=== PATIENT | male | born 1930 | race Caucasian/White ===

== ENCOUNTER 2017-06-02 20:48 | Emergency (ER) | payer MEDICARE, OTHER ==
[~2017-06-02] VITALS: Ht 165.1 cm; Wt 59.1 kg
[~2017-06-02 20:48] MED LIST: ACET-2116 PEG; ACET-2116 PO; AMIN30LI24 PEG; DOCU100C33 PEG; FERR-89 PEG; HALO5I IM; HYDR-309 PEG; INSU100C14 SQ; KDUR10 PEG; MOM30 PO; ONDA4 PO; PANT40TA25 PEG; QUET25TA PO
[2017-06-02] MEDS ORDERED: APIX5TAB PO (21:38)
[2017-06-02] MEDS ORDERED: CETI-290 PO (21:38)
[2017-06-02] MEDS ORDERED: AMLO-511 PO (21:38)
[2017-06-02] MEDS ORDERED: QUET25TA PO (21:38)
[2017-06-02] MEDS ORDERED: CYPR4TAB35 PO (21:38)
[2017-06-02 21:47] LABS: GLUCOSE,POINT OF CARE 138 MG/DL (70-110)
[2017-06-02 21:57] LABS: GLUCOSE,POINT OF CARE 146 MG/DL (70-110)
[2017-06-02 22:10] LABS: BASOPHILS # (AUTO) 0.06 K/uL (0.00-0.20); BASOPHILS % (AUTO) 0.6 % (0.0-2.0); EOSINOPHILS # (AUTO) 0.63 K/uL (0.00-0.70); EOSINOPHILS % (AUTO) 6.43 % (1.0-6.0); HEMATOCRIT 31.2 % (41-53); HEMOGLOBIN 10.4 g/dL (13.5-17.5); LYMPHOCYTES # (AUTO) 1.9 K/uL (1.0-4.8); MEAN CORPUSCULAR HEMOGLOBIN 28.5 pg (26.0-34.0); MEAN CORPUSCULAR HGB CONC 33.1 G/dL (31.0-37.0); MEAN CORPUSCULAR VOLUME 86 fL (80-100); MONOCYTES # (AUTO) 0.4 K/uL (0.1-1.0); MONOCYTES % (AUTO) 3.8 % (2.0-9.0); NEUTROPHILS # (AUTO) 6.8 K/uL (1.8-7.7); NEUTROPHILS % (AUTO) 70.1 % (40.0-70.0); PLATELET COUNT (AUTO) 287 K/uL (150-450); RED BLOOD CELL COUNT(AUTO) 3.63 MIL/uL (4.50-5.90); RED CELL DISTRIBUTION WIDTH 14.1 % (11.5-14.5); WHITE BLOOD COUNT (AUTO) 9.7 K/uL (4.5-11.0)
[2017-06-02 22:20] LABS: CALCIUM, TOTAL 8.9 mg/dL (8.8-10.5); CREATININE 1.3 mg/dL (0.60-1.30); POTASSIUM 4.2 mmol/L (3.5-5.1)
[2017-06-02 22:26] LABS: ALBUMIN 2.9 g/dL (3.4-5.0); BILIRUBIN,TOTAL 0.2 mg/dL (0.1-1.0); TOTAL PROTEIN, SERUM 7.4 g/dL (6.4-8.2)
[2017-06-02 22:38] LABS: INFLUENZA TYPE B NEGATIVE FOR TYPE B (NEGATIVE)
[2017-06-02 22:44] VITALS: BP 135/72
== END 2017-06-02 23:55 | disposition home or self-care (01) ==
LOC: EMS 20:51
DX: R11.2 Nausea with vomiting, unspecified (principal); I48.91 Unspecified atrial fibrillation; K21.9 Gastro-esophageal reflux disease without esophagitis; E78.00 Pure hypercholesterolemia, unspecified; I10 Essential (primary) hypertension; E11.9 Type 2 diabetes mellitus without complications
CPT/HCPCS: 82962; 87804; 99284